=== PATIENT | male | born 1945 | race Caucasian/White ===

== ENCOUNTER 2020-09-23 13:39 | Outpatient (CLI) | payer MEDICARE, SELFPAY ==
--- NOTE | 2020-09-23 15:00 | NEURO_ITS ---
Impression: # Complains of numbness and pain in right hand; Only right upper extremity tested per patient request. # Right severe Carpal Tunnel Syndrome. # No ulnar neuropathy. # Abnormal needle/EMG exam of right APB.. Nerve Conduction Studies Anti Sensory Summary Table Stim Site NR Peak (ms) P-T Amp (?V) Site1 Site2 Delta-P (ms) Dist (cm) Trevin (m/s) Right Median Anti Sensory (2-3nd Digit) Wrist 4.6 7.9 Wrist 2-3nd Digit 4.6 14.0 30 Wrist 6.2 18.1 Wrist 2-3nd Digit 4.6 14.0 30 Right Radial Anti Sensory (Base 1st Digit) Wrist 2.1 14.6 Wrist Base 1st Digit 2.1 0.0 Right Ulnar Anti Sensory (5th Digit) Wrist 2.7 43.5 Wrist 5th Digit 2.7 14.0 52 Motor Summary Table Stim Site NR Onset (ms) O-P Amp (mV) Site1 Site2 Delta-0 (ms) Dist (cm) Trevin (m/s) Right Median Motor (Abd Poll Brev) Wrist 8.4 0.5 Elbow Wrist 1.2 30.0 250 Elbow 9.6 1.2 ELB/ADM Wrist 5.0 0.0 Right Ulnar Motor (Abd Dig Minimi) Wrist 2.9 7.4 A Elbow Wrist 5.5 32.0 58 A Elbow 8.4 5.9 F Wave Studies NR F-Lat (ms) L-R F-Lat (ms) Right Median (Mrkrs) (Abd Poll Brev) 32.57 Right Ulnar (Mrkrs) (Abd Dig Min) 30.70 EMG Side Muscle Nerve Root Ins Act Fibs Amp Dur Recrt Comment Right 1stDorInt Ulnar C8-T1 Nml Nml Nml Nml Nml Right Ext Indicis Radial (Post Int) C7-8 Nml Nml Nml Nml Nml Right Ext Digitorum Radial (Post Int) C7-8 Nml Nml Nml Nml Nml Right BrachioRad Radial C5-6 Nml Nml Nml Nml Nml Right PronatorTeres Median C6-7 Nml Nml Nml Nml Nml Right Abd Poll Brev Median C8-T1 Nml Nml Decr >12ms Reduced Right ABD Dig Min Ulnar C8-T1 Nml Nml Nml Nml Nml MTDD
== END 2020-09-23 13:40 | disposition home or self-care (01) ==
PROVIDERS: PCP Family Medicine; Visit Provider Family Medicine
DX: R20.2 Paresthesia of skin (principal); G56.01 Carpal tunnel syndrome, right upper limb
CPT/HCPCS: 95886; 95909

== ENCOUNTER → 2020-11-02 02:24 | Outpatient (CLI) | payer MEDICARE, SELFPAY ==
[2020-11-02 18:21] LABS: SARS-CoV-2 RNA PCR Negative
== END ==
PROVIDERS: PCP Family Medicine; Visit Provider Plastic Surgery
DX: Z01.812 Encounter for preprocedural laboratory examination (principal); Z20.822 Contact with and (suspected) exposure to COVID-19
CPT/HCPCS: C9803; U0003; U0005

== ENCOUNTER 2020-11-05 00:49 | Day surgery (SDC) | payer MEDICARE, SELFPAY ==
[2020-10-26 13:45] VITALS: BMI 27.8
--- NOTE | 2020-11-05 07:11 | WPDHPUPDATE1 ---
History and Physical Update Update Date/Time: 11/05/20 07:11 History and Physical has been reviewed, including an updated exam of the patient. There are NO changes in the patient's condition. Risks, benefits, and alternatives have been discussed and questions answered. Patient agrees to proceed with procedure.
[2020-11-05 10:23] VITALS: BP 148/89; PULSE 73; RESP 18; TEMP 36.8; O2SAT 98; BMI 27.8
[2020-11-05 11:35] VITALS: BP 136/79; PULSE 60; RESP 16; O2SAT 96
[2020-11-05 11:45] VITALS: BP 132/77; PULSE 59; RESP 16; O2SAT 96
[2020-11-05 11:58] VITALS: BP 131/77; PULSE 73; RESP 20; O2SAT 96
[2020-11-05] MEDS: LIDO 1%/EPINEPHRINE 1:100,000 50 ML VIAL INFILTRATE (11:59)
[2020-11-05 12:07] VITALS: BP 137/79; PULSE 67; RESP 20; O2SAT 98
--- NOTE | 2020-11-05 12:17 | PM.OP ---
Procedure Note - Brief Procedure Note - Brief Date of procedure: 11/05/20 Pre-op diagnosis: right carpal tunnel syndrome Post-op diagnosis: same Procedure performed: R OCTR Anesthesia: local Surgeon: Kwadwo Langston MD Estimated blood loss (mL): 2 Tourniquet time (min): 0 Drains: No Packing: No Pathology: none sent Complications: No immediate complications Condition: stable Disposition: same day
--- NOTE | 2020-11-05 13:16 | PM.PROC ---
Procedure Note - Detailed Date of procedure: 11/05/20 Pre-op diagnosis: right carpal tunnel syndrome Post-op diagnosis: same Procedure performed: Right open carpal tunnel release Description of procedure: The wrist was marked in the holding area. The patient was taken to the operating room and placed supine on the operating table. A time-out was held and confirmed the site was prepped and draped in usual fashion. The marking was reconfirmed and the site locally infiltrated with 1% lidocaine with epinephrine. The tourniquet was not utilized. The incision was made in the palm and dissection was carried through the subcutaneous tissue to the palmar aponeurosis. The this in the flexor retinaculum were incised with a 15. Blade. A [address] the ligament was divided distally and proximally to completely release it. No unusual anatomy was noted. The wound was closed with interrupted 4-0 nylon suture. A bandage with Aguilar wrap was applied and the patient is discharged from the operating in stable condition. As a prescription for hydrocodone 5/325 10. Was sent to his pharmacy. Surgeon: Kwadwo Langston MD
== END 2020-11-05 12:25 | disposition home or self-care (01) ==
PROVIDERS: PCP Family Medicine; Visit Provider Plastic Surgery
PROC: (CPT 64721; principal; 2020-11-05 11:00)
DX: G56.01 Carpal tunnel syndrome, right upper limb (principal)
CPT/HCPCS: 64721; C9803; U0003; U0005

== ENCOUNTER 2020-11-09 09:40 | Outpatient (CLI) | payer MEDICARE, SELFPAY | END 2020-11-09 09:41 | disposition home or self-care (01) | LOC: ANHCOVIDVC 09:40 | PROVIDERS: PCP Family Medicine | DX: Z23 Encounter for immunization (principal) | CPT/HCPCS: 0001A; 91300 ==

== ENCOUNTER 2020-11-30 09:31 | Outpatient (CLI) | payer MEDICARE, SELFPAY | END 2020-11-30 09:32 | disposition home or self-care (01) | LOC: ANHCOVIDVC 09:31 | PROVIDERS: PCP Family Medicine | DX: Z23 Encounter for immunization (principal) | CPT/HCPCS: 0002A; 91300 ==

== ENCOUNTER → 2021-08-03 10:26 | Outpatient (REF) | payer MEDICARE, SELFPAY | LOC: ANHLAB 10:26 | PROVIDERS: PCP Family Medicine; Visit Provider Nurse Practitioner | DX: C44.41 Basal cell carcinoma of skin of scalp and neck (principal) | CPT/HCPCS: 88305 ==

== ENCOUNTER → 2021-08-23 08:08 | Outpatient (REF) | payer MEDICARE, SELFPAY | LOC: ANHLAB 08:08 | PROVIDERS: PCP Family Medicine; Visit Provider Nurse Practitioner | DX: C44.41 Basal cell carcinoma of skin of scalp and neck (principal) | CPT/HCPCS: 88305; 88331 ==

== ENCOUNTER 2022-05-06 11:50 | Outpatient (CLI) | payer MEDICARE, SELFPAY ==
--- NOTE | ~2022-05-06 | XR_ITS ---
XR knee LT 3V DATE: 05/06/2022 12:11 INDICATION: Left knee pain. No injury. TECHNIQUE: [place] and weightbearing AP and lateral views COMPARISON: None FINDINGS: There is distention of the suprapatellar bursa consistent with knee joint effusion. There is mild patellofemoral joint space narrowing and spurring. Moderately severe loss of medial compartment joint space with periarticular spurring. Lateral compart ment joint space is well preserved. No fracture, dislocation, periosteal reaction or bone destruction. No radiopaque interarticular loose body or chondrocalcinosis. IMPRESSION: Prominent knee joint effusion Osteoarthritis involving particularly the medial compartment, also the patellofemoral compartment Reviewed, dictated and finalized at location B. IMPRESSION: Prominent knee joint effusion Osteoarthritis involving particularly the medial compartment, also the patellof emoral compartment
== END 2022-05-06 11:51 | disposition home or self-care (01) ==
PROVIDERS: PCP Emergency Medicine; Visit Provider Emergency Medicine
DX: M25.462 Effusion, left knee (principal); M17.12 Unilateral primary osteoarthritis, left knee
CPT/HCPCS: 73562

== ENCOUNTER 2022-07-06 09:00 | Outpatient (RCR) | payer MEDICARE, SELFPAY ==
--- NOTE | 2022-06-15 09:04 | PTOPEVAL1 ---
Assessment and note entered by Alva March, PT Evaluation Information Assessment Status Evaluation Diagnosis L knee effusion Onset January 2022 Subjective Information pain started about 1 year ago,fell onto knee, pain eased, then increased more over the past 5 months; not working at this time due to knee pain, seasonal work driving truck; limits his home activity to avoid knee hurting more; is frustrated with the knee pain and limiting his activity; is going to get an appointment with an ortho dr to check his knee--want to get it fixed, so does not have pain anymore; Reported Pain Level Pain Score Self Report Additional Pain Score Comments pain range of L knee 0-5/10; increase pain with standing/walking over 4 hours, riding bicycle; decrease pain with aleve and rest; dull, achey pain all over knee; kinesiotape over L knee to decrease edema--educated pt on monitor skin and tape; discussed use of knee support brace with hinges and velcro straps to support knee for walking distances and increased activity level-- PRN use; discussed elevation of LE when resting and ice PRN; also educated and discussed use of cane PRN to decrease WB on L LE for distance walking; Assessment PT Clinical Summary Venkat has the diagnosis of L knee effusion. His xray report stated OA and bony changes in his knee He is active and frustrated due to the limitations in his activity due to knee pain; able to be up/ walking about 4 hours, then have to sit and rest. With the evaluation, he has decreased L knee active ROM of (-10') to 95', with pain increased with flexion end range; he has good strength of hip and knee, except hip extension is weak. There is edema all around patella. During the evaluation time, extensive education to pt: educated pt on pain management--use cane, ice , knee brace, kinesiotape; gait train with cane; kinesiotape for edema; basic knee anatomy; plan for PT treatment and assist with decreasing pain; he also asked about ortho referral for TKR, knee surgery, options to decrease his pain. Skilled PT treatment is indicated for modalities to decrease pain and edema over knee; therapeutic exercises to increase hip extension strength and i
--- NOTE | 2022-07-25 12:55 | PCPTNOTE ---
PHYSICAL THERAPY DISCHARGE 07-25-22 Attending Provider: Ruddy Yin MD Patient:Venkat Bangura Date of :1945 Venkat called and canceled his reevaluation appointment on 07-13-22. He stated that he was doing well and will continue with the exercises at home. Therefore, he will be discharged from PT at this time. The goals were not addressed. He received 4 PT sessions for the diagnosis of L knee OA/effusion. Thank you for referring Mr. Bangura to [facility].
== END 2022-07-26 11:19 | disposition home or self-care (01) ==
LOC: ANHPT 09:00
PROVIDERS: PCP Emergency Medicine; Visit Provider Emergency Medicine
DX: M25.462 Effusion, left knee (principal)
CPT/HCPCS: 97016; 97110; 97161; 97530

== ENCOUNTER 2022-12-15 15:39 | Emergency (ER) | payer MEDICARE, SELFPAY ==
[2022-12-15] VITALS (15 sets, daily range): BP systolic 126–144; BP diastolic 81–96; PULSE 66–82; RESP 18–20; TEMP 36.9–37.1; O2SAT 95–97
--- NOTE | ~2022-12-15 | CT_ITS ---
EXAMINATION: CT brain wo con INDICATION: Left arm and leg numbness COMPARISON: None TECHNIQUE: Standard unenhanced head CT. The dose-length product (DLP) was 605.33 mGy-cm. The mA was a djusted according to patient size. Iterative reconstruction technique was employed. FINDINGS: There is no acute intraparenchymal hemorrhage. No evidence of mass lesion. No evidence of a cute infarction. There is mild periventricular and subcortical hypodensity probably related to small vessel ischemic disease. There is mild prominence of the sulci and ventricles related to cerebral atr ophy. Intracranial calcified cerebral atherosclerosis is noted. There are no extra-axial collections. There is no mass effect or midline shift. Changes in the left globe are likely from ocular lens surg kolby. There is mild mucosal thickening of the paranasal sinuses. IMPRESSION: 1. No acute intracranial abnormality. 2. Age related findings. Reviewed, dictated and finalized at location F.
--- NOTE | 2022-12-15 16:42 | ED.WEAKNESS ---
HPI - Weakness General Chief complaint: Weakness Stated complaint: left knee weakness; left arm weakness Time Seen by Provider: 12/15/22 15:49 Source: patient and family Mode of arrival: ambulatory Limitations: no limitations History of Present Illness HPI Narrative: This is a 77-year-old male presents to the emergency department with weakness left arm and leg with some no drift no neurological deficits has been going on for the last day or 2 and feels like there is some heaviness in his arm and leg although there is no pronator drift no leg weakness. There is no slurred speech no fever chills no dysuria or hematuria no chest pain no shortness of breath no blurred vision no headaches no nausea vomiting. MD Complaint: numbness and tingling Onset (ago): day(s) Duration: constant Location: left hand and LLE Migration: none Severity: mild Related Data Allergies Allergy/AdvReac Type Severity Reaction Status Date / Time No Known Allergies Allergy Mild Verified 10/17/22 13:15 Review of Systems Review of Systems: All systems reviewed & are unremarkable except as noted in HPI and below PMFSH Past Medical History Medical History Erectile dysfunction Essential hypertension Hyperlipidemia Hypertension IGT (impaired glucose tolerance) Numbness of right hand Poison jeni dermatitis Wellness examination Surgical History Surgical History S/P carpal tunnel release Family History Family History Mother Cerebrovascular accident Father Family history of coronary artery disease Social History Social History Social History: Years smoked: 3 Smoking status: Former smoker Tobacco type: cigars Second hand tobacco smoke exposure: No Smoking end date: 09/04/85 Alcohol intake: current Alcohol use details: 2 SHOTS OF WHISKEY DAILY Substance use: never Substance use type: does not use Lack of Transportation: No Lack of Food: Never True Current Housing: I Have Housing Concerned About Future Housing: No Difficulty Paying Gas/Electric Bills: No Difficulty Paying for Meds: No Currently Unemployed: No Education: High School Diploma/GED Difficulty w/ Childcare or Family Care: No Living arrangements: with family Occupation/Education: retired Gender identity (if verbalized by the patient): Male Sexual Orientation (if Verbalized by the Patient): Straight or Heterosexual Spiritual care concerns: No Exam Const: General: healthy appearing Nutritional Appearance: well nourished Orientation/consciousness: patient oriented x3 Limitations: no limitations HENMT: Head: normal to inspection Face/Nose/Sinus: Normal external nose present Face and sinus: normal facial exam Eyes: Conjunctivae: conjunctivae normal Pupils: Equal, round and reactive pupils present Neck: Neck: normal visual inspection Chest: Chest palpation & inspection: normal inspection of the chest Resp: Effort & Inspection: normal respiratory effort Auscultation: clear to auscultation bilaterally Cardio: Rate: regular rate Rhythm: regular rhythm GI: GI Palp: Yes Soft to palpation Auscultation: normal bowel sounds : General: Yes bladder normal to palpation Back/Spine/Pelvis: Back: no CVA tenderness Skin: General skin exam: normal color Rashes: no rashes Wounds: no wounds Neuro: General: patient oriented x3, moves all extremities, no focal motor deficits and CN's II-XI intact bilaterally Cranial nerves: Yes Nystagmus not present Speech: normal speech Gait exam (Neuro): Normal gait present Extrem: General: normal to inspection and no clubbing, cyanosis or edema Psych: Mental Status: mental status grossly normal Affect: normal affect Course Course Emergency Course: CT scan brain pe
== END 2022-12-15 17:20 | disposition home or self-care (01) ==
PROVIDERS: Emergency Provider Emergency Medicine; PCP Emergency Medicine
DX: R53.1 Weakness (principal); E78.5 Hyperlipidemia, unspecified; I10 Essential (primary) hypertension; Z87.891 Personal history of nicotine dependence
CPT/HCPCS: 70450; 99284

== ENCOUNTER → 2022-12-16 06:54 | Outpatient (CLI) | payer MEDICARE, SELFPAY ==
--- NOTE | ~2022-12-16 | MR_ITS ---
MRI of the brain Clinical History: Left-sided weakness Technique: Axial and sagittal T1-weighted images were acquired. These were followed by axial T2-weigh nanda, diffusion weighted, gradient, and FLAIR images. Findings: There is a 1.3 x 0.7 cm area versus diffusion in the right periventricular white matter, co nsistent with acute infarct. Possible additional subacute infarct in the right periventricular white matter measuring 9 mm in diameter (diffusion image 22). No acute intracranial hemorrhage evident. The re are several small foci of hemosiderin in the thalami and basal ganglia bilaterally. There are mode rate chronic microvascular ischemic changes in the white matter bilaterally. Ventricles and subarachnoid spaces are unremarkable. Orbits are unremarkable. Paranasal sinuses and m astoid air cells are clear. Major intracranial flow voids are intact. Sagittal midline structures are intact. IMPRESSION: 1.3 x 0.7 cm acute infarct in the right periventricular white matter. Suspected additional 9 mm subac graciela infarct in the right periventricular white matter. Moderate chronic white matter changes with evidence of probable prior scattered microhemorrhages. Con maintenance advisor amyloid angiopathy. Reviewed, dictated and finalized at location . IMPRESSION: 1.3 x 0.7 cm acute infarct in the right periventricular white matter. Suspected additional 9 mm subacute infarct in the right periventricular white matter. Moderate chronic white matter changes with evidence of probable prior scattered microhemorrhages. Consider amyloid angiopathy.
== END ==
PROVIDERS: PCP Emergency Medicine; Visit Provider Emergency Medicine
DX: I63.9 Cerebral infarction, unspecified (principal); R90.82 White matter disease, unspecified; R53.1 Weakness
CPT/HCPCS: 70551

== ENCOUNTER 2022-12-16 09:03 | Inpatient (IN) | payer MEDICARE, SELFPAY ==
[2022-12-16] VITALS (11 sets, daily range): BP systolic 126–148; BP diastolic 63–94; PULSE 55–71; RESP 12–18; TEMP 36.2–36.9; O2SAT 95–100; BMI 28.4
--- NOTE | ~2022-12-16 | US_ITS ---
EXAMINATION: US carotid duplex BI DATE: 12/16/2022 14:10 INDICATION: Stroke. TECHNIQUE: Grayscale, color Doppler, and pulsed Doppler images of the cervical carotid arteries were obtained. The degree of vessel stenosis is placed in one of the following categories: normal, <50%, 5 0-69%, >=70% but less than near-occlusion, near-occlusion, or total occlusion. Note that percent sten osis relative to normal distal artery lumen diameter is indirectly measured from velocity measurement s as described by Douglas, et al. Radiology 2003; 229:340-346. Notes: Normal: Peak systolic velocity <125 centimeters/sec and no plaque <50%. Peak systolic velocity <125 ( EDV <40; ICA/CCA PSV ratio <2.0; used these factors only a tandem lesions or low cardiac output or co ntralateral disease) 50-69 %: PSV 125-230 (EDV 40-100; ratio 2-4) >= 70% but less than near occlusion: PSV greater than 230 (EDV > 100; ratio> 4.0) Near Occlusion: PSV that is variable; markedly narrowed lumen Occlusion: Absent flow on color/spectral Doppler and no lumen on escobar scale. COMPARISON: None. FINDINGS: RIGHT: The right common carotid artery (CCA) peak systolic velocity (PSV) is 58 cm/s. The right internal car otid artery (ICA) PSV is 44 cm/s. The right ICA end-diastolic velocity (EDV) is 14 cm/s. The right IC A/CCA PSV ratio is 0.8. The external carotid artery (ECA) PSV is 37 cm/s. There is antegrade flow in the right vertebral artery. LEFT: The left CCA PSV is 53 cm/s. The left ICA PSV is 48 cm/s. The left ICA EDV is 18 cm/s. The left ICA/C CA PSV ratio is 0.9. The ECA PSV is 23 cm/s. There is antegrade flow in the left vertebral artery. IMPRESSION: 1. Less than 50% stenosis in the right internal carotid artery by sonographic criteria. 2. Less than 50% stenosis in the left internal carotid artery by sonographic criteria. Reviewed, dictated and finalized at location B. IMPRESSION: 1. Less than 50% stenosis in the right internal carotid artery by sonographic minna snell. 2. Less than 50% stenosis in the left internal carotid artery by sonographic pamela yeung.
--- NOTE | ~2022-12-16 | CT_ITS ---
EXAMINATION: CTA BRAIN/CAROTID DATE: 12/17/2022 15:43 INDICATION: Acute stroke with left arm numbness TECHNIQUE: Computed tomographic angiography (CTA) of the head and neck was performed with 100 mL Omni paque-350 intravenous contrast. Multiplanar reconstructions and maximum intensity projection 3D-recon structions of the carotid arteries and of the intracranial arteries were created by the technologist on a separate workstation. Precontrast CT of the head was also obtained. Automated exposure control and iterative reconstruction technique were employed.The dose-length product was 1809.59 mGy-cm. COMPARISON: Head CT dated 12/15/2022 and brain MR dated 12/16/2022 FINDINGS: Carotid arteries: Visualized portion of the aortic arch demonstrates normal caliber with no dissection. There is athero sclerotic plaque with 0% stenosis of the right carotid bulb relative to normal distal artery lumen di ameter (NASCET criteria). There is atherosclerotic plaque with 0% stenosis of the left carotid bulb r elative to normal distal artery lumen diameter. Mild dependent atelectasis in the visualized upper yfn ngs. Calcified subcarinal lymph nodes consistent with old granulomatous disease. Likely benign subcen timeter right thyroid nodule. Cervical soft tissues are unremarkable. Severe cervical spondylosis. Head: Small old lacunar infarct at the head of the left caudate nucleus. There is a small region of decreas ed attenuation corresponding to the small acute infarct in the right frontal lobe spain radiata whic h is more conspicuous on the restricted diffusion imaging on MRI from one day prior. There is additio nal mild to moderate scattered white matter hypoattenuation consistent with chronic small vessel isch emic disease. No acute intracranial hemorrhage or abnormal extra axial fluid collection. Ventricles a re normal and symmetric. No mass/mass effect. No abnormally enhancing brain lesions on the postcontra st imaging. Changes of left intraocular lens replacement. The orbits, paranasal sinuses and mastoid a ir cells are normal. Intracranial arteries Small amount of atherosclerotic calcific location without hemodynamically significant stenosis at the bilateral carotid siphons, basilar and bilateral intracranial vertebral arteries. No evident hemodyn amically significant stenosis or aneurysm. Vertebral arteries are codominant. Both A1 and P1 segments are patent. There is also a patent anterior to indicating artery. Cerebral arterial arborization sergei ears symmetric. IMPRESSION: 1. 0% stenosis of the right carotid bulb relative to normal distal artery lumen diameter (NASCET crit eria). 2. 0% stenosis of the left carotid bulb relative to normal distal artery lumen diameter. 3. Decreased attenuation consistent with cytotoxic edema associated with the small acute infarct in t he right frontal lobe spain radiata which was previously noted on brain MRI from one day prior. 4. Nonhemodynamically significant atherosclerotic plaque at the bilateral carotid siphons, the basila r and bilateral intracranial vertebral arteries. 5. More diffuse mild to moderate scattered periventricular predominant white matter hypoattenuation c onsistent with chronic small vessel ischemic disease. Reviewed, dictated and finalized at location A. IMPRESSION: 1. 0% stenosis of the right carotid bulb relative to normal distal artery lumen diameter (NASCET criteria). 2. 0% stenosis of the left carotid bulb relative to normal distal artery lumen diameter. 3. Decreased attenuation consistent with cytotoxic edema associated with the sm all acute infarct in the right frontal lobe spain radiata which was previously noted on brain MRI from one day prior. 4. Nonhemodynamically significant atherosclerotic plaque at the b
--- NOTE | ~2022-12-16 | XR_ITS ---
EXAMINATION: XR chest 1V 12/16/2022 14:05 INDICATION: CVA PROCEDURE: PA view of the chest COMPARISON: No prior studies for comparison. FINDINGS: The lungs are clear. The cardiomediastinal silhouette is within normal limits. There are no pleural effusions. There is no pneumothorax suspected. IMPRESSION: 1: NO ACUTE CARDIOPULMONARY DISEASE. Reviewed, dictated and finalized at location B.
[2022-12-16 09:41] LABS: Basophils Percent Auto 0.8 % (0.2-1.2); Eosinophils Absolute Auto 0.4 K/mm3 (0-0.3); Hemoglobin 15.4 g/dL (14.0-18.0); Immature Granulocyte Absolute 0.02 K/mm3 (0.00-0.031); Immature Granulocyte Percent A 0.4 % (0-0.5); Lymphocytes Absolute Auto 1.44 K/mm3 (0.9-3.2); Lymphocytes Percent Auto 27.9 % (18.3-44.2); Mean Corpuscular HGB Conc 32.8 g/dl (32-36); Mean Corpuscular Hemoglobin 31.1 pg (26-34); Mean Corpuscular Volume 94.9 fl (80-100); Mean Platelet Volume 8.4 fl (7.4-10.4); Monocytes Absolute Auto 0.8 K/mm3 (0.1-0.6); Monocytes Percent Auto 15.5 % (2.6-8.5); Neutrophils Absolute Auto 2.5 K/mm3 (1.3-6.7); Neutrophils Percent Auto 48.4 % (45.5-73.1); Platelet Count Result 241 k/mm3 (150-375); Red Blood Count 4.95 M/mm3 (4.6-6.20); Red Cell Distribution Width 12.9 % (11.5-14.5); White Blood Count 5.2 K/mm3 (4.5-10.0)
[2022-12-16 09:52] LABS: Alanine Aminotransferase 22 U/L (6-50); Albumin Level 4.4 g/dL (3.5-5.1); Alkaline Phosphatase 61 U/L (38-126); Anion Gap 8 mmol/L (8-16); Aspartate Amino Transferase 29 U/L (17-59); Bilirubin,Total 0.6 mg/dL (0.2-1.3); Blood Urea Nitrogen 13 mg/dL (9-20); Calcium 8.7 mg/dL (8.4-10.2); Carbon Dioxide 24 mmol/L (22-30); Chloride 105 mmol/L (98-107); Estimated CRCL calculation 62 ml/min; Estimated Glomerular Filt Rate > 60; Glucose 120 mg/dL (65-110); Potassium 4.3 mmol/L (3.4-5.0); Sodium 137 mmol/L (137-145)
[2022-12-16 09:53] LABS: Prothrombin Time 13.2 Seconds (11.1-14.7)
[2022-12-16 09:54] LABS: Partial Thromboplastin Time 26.7 SECONDS (22.3-36.8)
[2022-12-16 10:04] LABS: Troponin I < 0.012 ng/mL (0.000-0.034)
--- NOTE | 2022-12-16 11:03 | ED.NEUROSD ---
HPI - Neuro Symptoms/Deficit General Chief Complaint: Suspected CVA Stated Complaint: brain infarct seen on mri Time Seen by Provider: 12/16/22 10:59 History of Present Illness HPI Narrative: 77 years old white male came to the emergency room by private car because of not able to get around with the left upper and left lower extremity weakness started 2 days ago patient feeling like drunk. Patient was seen his family physician and had CT scan of the head on December 15 which showed no acute intracranial abnormality, today had MRI of the brain which showed acute infarction. Please look at the record. Patient denies increase of his symptoms. History of hypertension, and tobacco use, and social drinking, patient is not on antiplatelet or anticoagulant medication. Related Data Allergies Allergy/AdvReac Type Severity Reaction Status Date / Time No Known Allergies Allergy Mild Verified 12/16/22 09:21 Review of Systems Review of Systems: All systems reviewed & are unremarkable except as noted in HPI and below PMFSH Past Medical History Medical History Erectile dysfunction Essential hypertension Hyperlipidemia Surgical History Surgical History History of carpal tunnel release History of cataract extraction with lens replacement Family History Family History Mother Cerebrovascular accident Father Family history of coronary artery disease Social History Social History Social History: Surrogate medical decision maker: Code status: Full code. Years smoked: 3 Smoking status: Former smoker Tobacco type: cigars Second hand tobacco smoke exposure: No Smoking end date: 09/04/85 Alcohol intake: current Alcohol use details: Two shots of whiskey a day. Substance use: never Substance use type: does not use Lack of Transportation: No Lack of Food: Never True Current Housing: I Have Housing Concerned About Future Housing: No Difficulty Paying Gas/Electric Bills: No Difficulty Paying for Meds: No Currently Unemployed: No Education: High School Diploma/GED Difficulty w/ Childcare or Family Care: No Living arrangements: with family Occupation/Education: retired Spiritual care concerns: No Exam Narrative: General appearance: Well-developed, well-nourished Skin: Normal color Head: Normocephalic, nontraumatic Eyes: Clear conjunctiva ENT: Oropharynx normal, ears normal, nose normal Neck: Supple, nontender Chest and respiratory: Airway patent, no respiratory distress, no accessory muscle use Heart: Regular rate/rhythm Abdomen: Soft, nontender, no organomegaly, quiet bowel sounds Vascular: Normal peripheral pulses, normal capillary refill. Musculoskeletal: Mild weakness of the left upper and left lower extremity Neurologic: Alert and oriented ?3, Course Reevaluation(s) Reevaluation #1: Unchanged compared to on arrival Date: 12/16/22 Time: 13:27 Consultations Consultation #1: Dr. Mckeon Date: 12/16/22 Time: 11:15 Vital Signs Vital signs: Vital Signs Temperature 36.9 C 12/16/22 09:13 Pulse Rate 62 12/16/22 09:13 Respiratory Rate 14 12/16/22 09:13 Blood Pressure 148/94 H 12/16/22 09:13 Pulse Oximetry 100 12/16/22 09:13 Oxygen Delivery Room Air 12/16/22 09:13 Temperature 36.9 C 12/16/22 09:13 Pulse Rate 71 12/16/22 13:13 Respiratory Rate 16 12/16/22 13:13 Blood Pressure 137/84 12/16/22 13:13 Pulse Oximetry 98 12/16/22 13:13 Oxygen Delivery Room Air 12/03
[2022-12-16] MEDS: ASPIRIN 81 MG CHEWABLE TABLET 324 MG PO (11:23)
--- NOTE | 2022-12-16 11:52 | ECG_ITS ---
Measurements Intervals [place] Rate: 61 P: 42 NM: 200 QRS: -23 QRSD: 109 T: 5 QT: 426 QTc: 430 Interpretive Statements SINUS RHYTHM MODERATE VOLTAGE CRITERIA FOR LVH, CONSIDER NORMAL VARIANT BORDERLINE ECG NO PREVIOUS ECG AVAILABLE FOR COMPARISON Electronically Signed On 12-16-2022 16:47:02 CDT by Tang Green M.D.
--- NOTE | 2022-12-16 12:20 | PC.NURSE ---
called dietary and ordered lunch tray at this time
--- NOTE | 2022-12-16 13:05 | PM.IMHP ---
H&P: HPI History of Present Illness Date/Time: 12/16/22 13:05 Chief Complaint: Abnormal brain MRI. Narrative: This is a very pleasant 77-year-old male with hypertension who presented to the emergency department for evaluation after he was found to have evidence of an acute stroke on brain MRI this morning. Patient provides the following history. He was seen in the emergency department at the [facility] yesterday for evaluation of weakness and heaviness in the left arm and leg which he 1st noticed sometime on Monday afternoon. He has felt a bit off balance and feels as though he is not walking properly because the left leg does not seem to be doing what he intends. Brain CT obtained yesterday showed no acute intracranial abnormality and age-related findings. He was given a dose of Plavix and was scheduled for an outpatient brain MRI this morning at 07:00. MRI showed a 1.3 x 0.7 cm acute infarct in the right periventricular matter and a suspected additional 9 mm subacute infarct in the same region. 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 He is being admitted in this setting for further evaluation and neurology consultation. At the time my evaluation he has no new complaints and he has not had any worsening of his symptoms. He denies vertigo, acute visual changes, facial droop, and difficulty speaking and swallowing. He has no history of cardiac dysrhythmia and denies sensations of racing heart and palpitations. He has no known personal or family history of amyloidosis. Weight has remained stable. He denies significant fatigue, weakness, easy bruising, shortness of breath, joint pain, and swelling. 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 It is pruritic but that seems to improve after taking a hot shower. This rash is not all similar to the psoriasis that he has on the other leg. 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 Review of Systems Review of Systems: Twelve systems were reviewed and are negative except for as per HPI. [facility] Past Medical History Medical History Erectile dysfunction Essential hypertension Hyperlipidemia Surgical History Surgical History History of carpal tunnel release History of cataract extraction with lens replacement Family History Family History Mother Cerebrovascular accident Father Family history of coronary artery disease Social History Social History (Updated 12/16/22 @ 23:32 by Pascale Joy PA-C) Social History: Surrogate medical decision maker: Essence Gaspar, daughter. Code status: Full code. Years smoked: 3 Smoking status: Former smoker Tobacco type: cigars Second hand tobacco smoke exposure: No Smoking end date: 09/04/85 Alcohol intake: current Drinks per week: 21 Alcohol use details: Two shots of whiskey a day. Substance use: never Substance use type: does not use Last use: 12/12/22 Lack of Transportation: No Lack of Food: Never True Current Housing: I Have Housing Concerned About Future Housing: No Difficulty Paying Gas/Electric Bills: No Difficulty Paying for Meds: No Currently Unemployed: No Education: High School Diploma/GED Difficulty w/ Childcare or Family Care: No Living arrangements: with family Additional living arrangements comments: Lives with spouse. Occupation/Education: retired Additional occupation/education comments: Retired body and fender mechanic apprentice. Spiritual care concerns: No Meds Home Medications and Allergies Home Medications Medication Instructions Recorded Confirmed Type amlodipine 10 mg tablet 10 mg PO DAILY #90 tab
--- NOTE | 2022-12-16 13:21 | ECHO_ITS ---
Patient Info Name: Venkat Bangura Age: 77 years : 1945 Gender: Male Ht: 70 in Wt: 189 lbs BSA: 2.07 m2 HR: 71 bpm BP: 137 / 84 mmHg Heart Rhythm: Sinus Rhythm Technical Quality: Fair Exam Date: 12/16/2022 2:17 PM Exam Location: [facility] Card Pulmonary Patient Status: Inpatient Admit Date: 12/16/2022 Staff Ordering Physician: Pascale Joy PA-C [place] Parent: Yasmin Morin RDCS Attending Provider: Malcolm Meek MD Referring Physician: Rufino SAN; Exam Type: CA echo doppler w bubble study Study Info Indications - stroke, htn, hld Complete two-dimensional, color flow and Doppler transthoracic echocardiogram is performed with agitated saline. Contrast/Agitated Saline Contrast/Ag. Saline: Agitated Saline Amount: 20.00 ml Administered By: Charlette Moreno Existing IV Access: Yes IV Access Condition: patent with no signs of infiltration Summary 1. Left ventricular chamber dimension is normal. 2. Left ventricular systolic function is normal, estimated at 65-70%. 3. The left ventricular diastolic function is grade I diastolic dysfunction. 4. E/e' 10 is mildly elevated. 5. There is trace mitral valve regurgitation. 6. No pulmonary hypertension, estimated pulmonary arterial systolic pressure is 22 mmHg. 7. There is trace pulmonic regurgitation. Left Ventricle E/e' 10 is mildly elevated. Left ventricular chamber dimension is normal. Left ventricular systolic function is normal, estimated at 65-70%. The left ventricular diastolic function is grade I diastolic dysfunction. Right Ventricle Right ventricular chamber dimension is normal. Right ventricular systolic function is normal and with normal TAPSE 2.7 cm. Left Atria Left atrial chamber dimension is normal. Right Atria Right atrial chamber dimension is normal. Atrial Septum Intact interatrial septum visualized by 2D and agitated saline imaging. Agitated saline injection with and without valsalva maneuver opacified right side cardiac chambers without shunt to left side cardiac chambers. Aortic Valve The aortic valve is trileaflet. There is no aortic valve stenosis. There is no aortic valve regurgitation. Pulmonic Valve There is trace pulmonic regurgitation. Mitral Valve There is no mitral valve stenosis. There is trace mitral valve regurgitation. Tricuspid Valve There is no tricuspid valve regurgitation. No pulmonary hypertension, estimated pulmonary arterial systolic pressure is 22 mmHg. Pericardium/Pleural There is no pericardial effusion. Inferior Vena Cava Normal inferior vena cava with >50% collapse upon inspiration consistent with normal right atrial pressure, 5 mmHg. Aorta The aortic root size at the sinus of Valsalva is normal. Left Ventricular Outflow Tract Name Value Normal LVOT 2D LVOT Diameter 2.0 cm LVOT Doppler LVOT Peak Gradient 3 mmHg LVOT Mean Gradient 2 mmHg LVOT VTI 19 cm LVOT VTI/AV VTI Ratio 0.7
--- NOTE | 2022-12-16 13:35 | ADMGEN ---
This patient, Venkat Bangura, was admitted to Medical Room 258-01. Patient/family oriented to hospital policies and general routines including ID bracelet, bed and alarms, visiting hours, pain management, procedures, bathroom and other care routines, personal items, smoking policy, room service/diet, and visiting hours. Information on how to activate the Rapid Response Team has been discussed. Patient/Family are encouraged to report perceived risks to care and to ask questions if they do not understand what they are told or what they should do.
[2022-12-16] MEDS: CLOPIDOGREL BISULFATE 75 MG TABLET PO (23:39)
[2022-12-17] VITALS (7 sets, daily range): BP systolic 128–147; BP diastolic 67–88; PULSE 66–80; RESP 18; TEMP 36.5–36.8; O2SAT 97–98
[2022-12-17 07:02] LABS: Anion Gap 6 mmol/L (8-16); Blood Urea Nitrogen 13 mg/dL (9-20); Calcium 8.6 mg/dL (8.4-10.2); Carbon Dioxide 25 mmol/L (22-30); Chloride 107 mmol/L (98-107); Cholesterol 192 mg/dL (0-200); Estimated CRCL calculation 52 ml/min; Estimated Glomerular Filt Rate > 60; Glucose 96 mg/dL (65-110); HDL Direct 46 mg/dL; Magnesium 2.4 mg/dL (1.6-2.3); Potassium 4.2 mmol/L (3.4-5.0); Sodium 138 mmol/L (137-145); Triglycerides 133 mg/dL (<150)
--- NOTE | 2022-12-17 07:06 | P.PNIM_ITS ---
Progress Note: A&P Assessment and Plan (1) Cerebrovascular accident: Code(s): I63.9 - Cerebral infarction, unspecified Status: Acute Assessment and Plan: * Presented to the ED of [place] with complaints of weakness and heaviness in the right arm * Head CT no acute intracranial abnormality * Brain MRI shows an acute infarct and a possible smaller subacute infarct in the right periventricular matter. * Echocardiogram showed EF of 65-70% with grade 1 diastolic dysfunction without right to left shunt * carotid Doppler ultrasounds less than 50% stenosis bilaterally * Radiologist remarks on chronic white matter changes with evidence of probable prior scattered microhemorrhages which may be seen with amyloid angiopathy. * Lipid panel cholesterol 192, Triglycerides 133, HDL 46, LDL * Neurology consult * Neuro checks Q4H * PT/OT also consulted. (2) White matter changes: Status: Acute Assessment and Plan: * MRI demonstrates moderate chronic white matter changes with evidence of probable prior scattered microhemorrhages, consider amyloid angiopathy. * Urine and serum protein electrophoresis and immunofixation and light chain assay pending. * Cutaneous findings on the lower limbs and a skin biopsy would be appropriate. * May have to be done by dermatology as an outpatient. (3) Essential hypertension: Code(s): I10 - Essential (primary) hypertension Status: Acute Assessment and Plan: * Blood pressure currently 130/84 * Continue home amlodipine, lisinopril * Trend BP * Adjust therapy as indicated (4) Hyperlipidemia: Qualifiers: Hyperlipidemia type: mixed hyperlipidemia Qualified Code(s): E78.2 - Mixed hyperlipidemia Code(s): E78.5 - Hyperlipidemia, unspecified Status: Acute Assessment and Plan: * Lipid panel cholesterol 192, Triglycerides 133, HDL 46, LDL * Consider adding a statin (5) Impaired fasting glucose: Code(s): R73.01 - Impaired fasting glucose Status: Acute Assessment and Plan: * Glucose 96 * hemoglobin A1c 5.7 * Continue to trend glucose * No indication of accu checks, or continuous monitoring Time Spent With Patient Time: 52 minutes Time with patient: Greater than 35 minutes Subjective Date/time seen: 12/17/22 07:06 Interval history: 12/17/22 12/16/22? 13:05 This is a very pleasant 77-year-old male with hypertension who presented to the emergency department for evaluation after he was found to have evidence of an acute stroke on brain MRI this morning. Patient provides the following history. He was seen in the emergency department at the [facility] [place] yesterday for evaluation of weakness and heaviness in the left arm and leg which he 1st noticed sometime on Monday afternoon. He has felt a bit off balance an d feels as though he is not walking properly because the left leg does not seem to be doing what he intends. Brain CT obtained yesterday showed no acute intracranial abnormality and age-related findings. He was given a dose of Plavix and was scheduled for an outpatient brain MRI this morning at 07:00. MRI showed a 1.3 x 0.7 cm acute infarct in the right periventricular matter and a suspected additional 9 mm subacute infarct in the same region. 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 He is be
--- NOTE | 2022-12-17 07:06 | PM.IMPN ---
Progress Note: A&P Assessment and Plan (1) Cerebrovascular accident: Code(s): I63.9 - Cerebral infarction, unspecified Status: Acute Assessment and Plan: Presented to the ED of [place] with complaints of weakness and heaviness in the right arm Head CT no acute intracranial abnormality Brain MRI shows an acute infarct and a possible smaller subacute infarct in the right periventricular matter. Echocardiogram showed EF of 65-70% with grade 1 diastolic dysfunction without right to left shunt carotid Doppler ultrasounds less than 50% stenosis bilaterally Radiologist remarks on chronic white matter changes with evidence of probable prior scattered microhemorrhages which may be seen with amyloid angiopathy. Lipid panel cholesterol 192, Triglycerides 133, HDL 46, LDL Neurology consult Neuro checks Q4H PT/OT also consulted. (2) White matter changes: Status: Acute Assessment and Plan: MRI demonstrates moderate chronic white matter changes with evidence of probable prior scattered microhemorrhages, consider amyloid angiopathy. Urine and serum protein electrophoresis and immunofixation and light chain assay pending. Cutaneous findings on the lower limbs and a skin biopsy would be appropriate. May have to be done by dermatology as an outpatient. (3) Essential hypertension: Code(s): I10 - Essential (primary) hypertension Status: Acute Assessment and Plan: Blood pressure currently 130/84 Continue home amlodipine, lisinopril Trend BP Adjust therapy as indicated (4) Hyperlipidemia: Qualifiers: Hyperlipidemia type: mixed hyperlipidemia Qualified Code(s): E78.2 - Mixed hyperlipidemia Code(s): E78.5 - Hyperlipidemia, unspecified Status: Acute Assessment and Plan: Lipid panel cholesterol 192, Triglycerides 133, HDL 46, LDL Consider adding a statin (5) Impaired fasting glucose: Code(s): R73.01 - Impaired fasting glucose Status: Acute Assessment and Plan: Glucose 96 hemoglobin A1c 5.7 Continue to trend glucose No indication of accu checks, or continuous monitoring Time Spent With Patient Time: 52 minutes Time with patient: Greater than 35 minutes Subjective Date/time seen: 12/17/22 07:06 Interval history: 12/17/22 12/16/22? 13:05 This is a very pleasant 77-year-old male with hypertension who presented to the emergency department for evaluation after he was found to have evidence of an acute stroke on brain MRI this morning. Patient provides the following history. He was seen in the emergency department at the [facility] [place] yesterday for evaluation of weakness and heaviness in the left arm and leg which he 1st noticed sometime on Monday afternoon. He has felt a bit off balance and feels as though he is not walking properly because the left leg does not seem to be doing what he intends. Brain CT obtained yesterday showed no acute intracranial abnormality and age-related findings. He was given a dose of Plavix and was scheduled for an outpatient brain MRI this morning at 07:00. MRI showed a 1.3 x 0.7 cm acute infarct in the right periventricular matter and a suspected additional 9 mm subacute infarct in the same region. 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 He is being admitted in this setting for further evaluation and neurology consultation. At the time my evaluation he has no new complaints and he has not had any worsening of his symptoms. He denies vertigo, acute visual changes, facial droop, and difficulty speaking and swallowing. He has no history of cardiac dysrhythmia and denies sensations of racing heart and palpitations. He has no known personal or family history of amyloidosis. Weight has remained stable.? He denies significant fa
[2022-12-17 07:12] LABS: LDL Cholesterol Direct 106 mg/dL
[2022-12-17 07:22] LABS: Hemoglobin A1C 5.7 % (<5.7)
[2022-12-17] MEDS: lisinopriL 2.5 MG TABLET PO (08:39)
[2022-12-17] MEDS: amLODIPine BESYLATE 5 MG TABLET 10 MG PO (08:40)
--- NOTE | 2022-12-17 09:42 | WPDNEURCNPN ---
Assessment and Plan Assessment and plan (1) Cerebrovascular accident: Code(s): I63.9 - Cerebral infarction, unspecified Status: Acute (2) White matter periventricular infarction: Code(s): I63.9 - Cerebral infarction, unspecified Status: Acute (3) Hyperlipidemia: Qualifiers: Hyperlipidemia type: mixed hyperlipidemia Qualified Code(s): E78.2 - Mixed hyperlipidemia Code(s): E78.5 - Hyperlipidemia, unspecified Status: Acute (4) Essential hypertension: Code(s): I10 - Essential (primary) hypertension Status: Acute Plan Venkat Bangura is a 77 year old male with a history of hypertension and hyperlipidemia presenting for evaluation of stroke. Found to have right periventricular infarction. Suspect etiology to be small vessel stroke. - CTA brain carotid - LDL is 106, will need statin - Continue Aspirin and Plavix x 3 weeks, then aspirin 81mg daily Consult date: 12/17/22 Reason for consult: Acute stroke HPI: Venkat Bangura is a 77 year old male with a history of hypertension and hyperlipidemia presenting for evaluation of stroke. On the day prior to admission, patient presented to [place] ED due to concerns for weakness in the left arm and leg (which he first noted on 12/14). CT head was obtained which did not show any abnormalities. He was given a dose of Plavix and scheduled for MRI the following morning. Yesterday, patient had an MRI brain which showed 1/3 x 0.7cm acute infarct in the right periventricular region and a 9mm subacute infarct in the right periventricular region as well. There was also evidence of scattered microhemorrhages, raising concern for possible amyloid angiopathy. Patient was transferred to [place] ED for further evaluation. Patient denies any focal numbness, vision changes, speech changes, facial droop, dysphagia. His blood pressure has been in the 130-140s systolic. Carotid doppler showed <50% stenosis bilaterally. LDL is 106 and A1c is 5.7. Echocardiogram was unrevealing. Patient reports feeling like his left side is less coordinated than the right but otherwise no complaints. Discussed results of MRI with and patient. Review of Systems Constitutional: Constitutional: Reports no additional constitutional complaints Eyes: Eyes: Reports no additional eye complaints ENT: Reports system reviewed and no additional complaints, except as documented Cardiovascular: Cardiovascular: Reports no additional cardiovascular complaints Respiratory: Respiratory: Reports no additional respiratory complaints Gastrointestinal: Gastrointestinal: Reports no additional gastrointestinal complaints Genitourinary: Genitourinary: Reports no additional male genitourinary complaints Musculoskeletal: Musculoskeletal: Reports no additional musculoskeletal complaints Integumentary/Breasts: Skin/Breast: Reports rash Neurologic: Reports as per HPI Psychiatric: Psychiatric: Reports no additional psychiatric complaints [facility] Past Medical History Medical History Erectile dysfunction Essential hypertension Hyperlipidemia Surgical History Surgical History History of carpal tunnel release History of cataract extraction with lens replacement Family History Family History Mother Cerebrovascular accident Father Family history of coronary artery disease Social History Social History Social History: Surrogate medical decision maker: Essence Gaspar, daughter. Code status: Full code. Years smoked: 3 Smoking status: Former smoker Tobacco type: cigars Second hand tobacco smoke exposure: No Smoking end date: 09/04/85 Alcohol intake: current Drinks per week: 21 Alcohol use details: Two shots of whiskey a day. Substance use: n
--- NOTE | 2022-12-17 10:45 | P.DS_ITS ---
DS: Admitting Diagnosis Discharge Date 12/17/2022 1045 Admitting Diagnosis acute stroke DS: Discharge Diagnosis Discharge Diagnosis (1) Cerebrovascular accident: Code(s): I63.9 - Cerebral infarction, unspecified Status: Acute Assessment and Plan: * Presented to the ED of [place] with complaints of weakness and heaviness in the right arm * Head CT no acute intracranial abnormality * CTA shows 0% stenosis bilaterally, atherosclerotic plaque at the bilateral carotid siphons, the basilar and bilateral intracranial vertebral arteries, white matter disease * Brain MRI shows an acute infarct and a possible smaller subacute infarct in the right periventricular matter. * Echocardiogram showed EF of 65-70% with grade 1 diastolic dysfunction without right to left shunt * carotid Doppler ultrasounds less than 50% stenosis bilaterally * Radiologist remarks on chronic white matter changes with evidence of probable prior scattered microhemorrhages which may be seen with amyloid angiopathy. * Lipid panel cholesterol 192, Triglycerides 133, HDL 46, LDL * Neurology consult * Neuro checks Q4H * PT/OT also consulted. (2) White matter changes: Status: Acute Assessment and Plan: * MRI demonstrates moderate chronic white matter changes with evidence of probable prior scattered microhemorrhages, consider amyloid angiopathy. * Urine and serum protein electrophoresis and immunofixation and light chain assay pending. * Cutaneous findings on the lower limbs and a skin biopsy would be appropriate. * May have to be done by dermatology as an outpatient. (3) Essential hypertension: Code(s): I10 - Essential (primary) hypertension Status: Acute Assessment and Plan: * Blood pressure currently 130/84 * Continue home amlodipine, lisinopril * Trend BP * Adjust therapy as indicated (4) Hyperlipidemia: Qualifiers: Hyperlipidemia type: mixed hyperlipidemia Qualified Code(s): E78.2 - Mixed hyperlipidemia Code(s): E78.5 - Hyperlipidemia, unspecified Status: Acute Assessment and Plan: * Lipid panel cholesterol 192, Triglycerides 133, HDL 46, LDL * Consider adding a statin (5) Impaired fasting glucose: Code(s): R73.01 - Impaired fasting glucose Status: Acute Assessment and Plan: * Glucose 96 * hemoglobin A1c 5.7 * Continue to trend glucose * No indication of accu checks, or continuous monitoring DS: Summary Hospital Course Hospital Course: Patient is a 77-year-old male with a past medical history of hypertension who presented to the ED with complaints abnormal MRI. On 12/15 patient presented to ED at [place] and was evaluated for weakness and having his left arm and leg. At that time CT of the head was performed did not show any acute bleeds or findings. Patient then presented to the imaging center for an MRI of the brain which did show an acute infarct in the right periventricular matter and suspected additional 9 mm acute infarct in the same region. It also showed some chronic white matter changes. Neurology was consulted and full workup was performed. Patient did have elevated lipid panel and has been started on atorvastatin. Plavix has been continued since it was prescribed in the ED at [place]. Patient is also been started on aspirin and blood pressure has been well controlled. Anticoagulation disorder workup has been initiated and is underway. Currently georgina
--- NOTE | 2022-12-17 10:45 | PM.DS ---
DS: Admitting Diagnosis Discharge Date 12/17/2022 1045 Admitting Diagnosis acute stroke DS: Discharge Diagnosis Discharge Diagnosis (1) Cerebrovascular accident: Code(s): I63.9 - Cerebral infarction, unspecified Status: Acute Assessment and Plan: Presented to the ED of [place] with complaints of weakness and heaviness in the right arm Head CT no acute intracranial abnormality CTA shows 0% stenosis bilaterally, atherosclerotic plaque at the bilateral carotid siphons, the basilar and bilateral intracranial vertebral arteries, white matter disease Brain MRI shows an acute infarct and a possible smaller subacute infarct in the right periventricular matter. Echocardiogram showed EF of 65-70% with grade 1 diastolic dysfunction without right to left shunt carotid Doppler ultrasounds less than 50% stenosis bilaterally Radiologist remarks on chronic white matter changes with evidence of probable prior scattered microhemorrhages which may be seen with amyloid angiopathy. Lipid panel cholesterol 192, Triglycerides 133, HDL 46, LDL Neurology consult Neuro checks Q4H PT/OT also consulted. (2) White matter changes: Status: Acute Assessment and Plan: MRI demonstrates moderate chronic white matter changes with evidence of probable prior scattered microhemorrhages, consider amyloid angiopathy. Urine and serum protein electrophoresis and immunofixation and light chain assay pending. Cutaneous findings on the lower limbs and a skin biopsy would be appropriate. May have to be done by dermatology as an outpatient. (3) Essential hypertension: Code(s): I10 - Essential (primary) hypertension Status: Acute Assessment and Plan: Blood pressure currently 130/84 Continue home amlodipine, lisinopril Trend BP Adjust therapy as indicated (4) Hyperlipidemia: Qualifiers: Hyperlipidemia type: mixed hyperlipidemia Qualified Code(s): E78.2 - Mixed hyperlipidemia Code(s): E78.5 - Hyperlipidemia, unspecified Status: Acute Assessment and Plan: Lipid panel cholesterol 192, Triglycerides 133, HDL 46, LDL Consider adding a statin (5) Impaired fasting glucose: Code(s): R73.01 - Impaired fasting glucose Status: Acute Assessment and Plan: Glucose 96 hemoglobin A1c 5.7 Continue to trend glucose No indication of accu checks, or continuous monitoring DS: Summary Hospital Course Hospital Course: Patient is a 77-year-old male with a past medical history of hypertension who presented to the ED with complaints abnormal MRI. On 12/15 patient presented to ED at [place] and was evaluated for weakness and having his left arm and leg. At that time CT of the head was performed did not show any acute bleeds or findings. Patient then presented to the imaging center for an MRI of the brain which did show an acute infarct in the right periventricular matter and suspected additional 9 mm acute infarct in the same region. It also showed some chronic white matter changes. Neurology was consulted and full workup was performed. Patient did have elevated lipid panel and has been started on atorvastatin. Plavix has been continued since it was prescribed in the ED at [place]. Patient is also been started on aspirin and blood pressure has been well controlled. Anticoagulation disorder workup has been initiated and is underway. Currently patient feels good and he denies any chest pain, shortness a breath, nausea, vomiting, diarrhea, constipation, weakness or fatigue. Patient does still have some moderate weakness in the left hand as he is unable to pick anything up with it. Carotid Dopplers were performed and showed less than 50% stenosis bilaterally. CTA has been ordered shows infarct as mentioned in the MRI, 0% stenosis bilateral carotid arteries, nonhemodynamically significant atherosclerotic plaque at the
[2022-12-17] MEDS: ATORVASTATIN 20 MG TABLET PO (11:51)
[2022-12-17] MEDS: ASPIRIN 81 MG CHEWABLE TABLET PO (11:51)
--- NOTE | 2022-12-17 12:15 | PCSTNOTE ---
Bedside communication evaluation. Auditory comprehension and verbal expression are found to be within normal limits. Results of oral peripheral examination within normal limits. Speech intelligibility in conversational speech within functional limits. No further speech therapy is recommended. Thank you for the referral of this patient.
[2022-12-20 20:15] LABS: Kappa\\Lambda Light Chains 1.31 (0.26-1.65); Lambda Light Chain 15.5 mg/L (5.7-26.3)
[2022-12-21 15:56] LABS: Albumin 3.7 g/dL (3.8-4.8); Alpha 1 Globulin 0.3 g/dL (0.2-0.3); Alpha 2 Globulin 0.7 g/dL (0.5-0.9); Beta 1 Globulin 0.5 g/dL (0.4-0.6); Gamma Globulin 0.7 g/dL (0.8-1.7); Interpretation Consistent with; Protein, Total 6.3 g/dL (6.1-8.1)
[2022-12-23 01:46] LABS: Albumin 24 Hr Urine 33 %; Creatinine, 24 Hr Urine 2.05 g/24 h (0.50-2.15); Total Protein/Creatinine Ratio 73 mg/g creat (<100)
[2022-12-26 20:03] LABS: Creat 24 Hr 1.88 g/24 h (0.50-2.15); Measured Kappa Chains <1.00 mg/dL (<2.00); Measured Lambda Chains <1.00 mg/dL (<2.00)
== END 2022-12-17 17:30 | disposition home or self-care (01) | DRG 65 ==
LOC: ANHED 10:59 → ANH2MED 13:14
PROVIDERS: Physician Assistant; Admitting Provider Hospitalist; Emergency Provider Emergency Medicine; PCP Emergency Medicine; Visit Provider Nurse Practitioner
DX: I63.9 Cerebral infarction, unspecified (principal); G81.94 Hemiplegia, unspecified affecting left nondominant side; E78.5 Hyperlipidemia, unspecified; I10 Essential (primary) hypertension; L40.9 Psoriasis, unspecified; R73.01 Impaired fasting glucose; Z98.49 Cataract extraction status, unspecified eye; Z96.1 Presence of intraocular lens; Z87.891 Personal history of nicotine dependence; Z79.02 Long term (current) use of antithrombotics/antiplatelets
CPT/HCPCS: 36415; 70496; 70498; 71045; 80048; 80053; 80061; 81050; 82570; 83036; 83735; 83883; 84155; 84156; 84165; 84166; 84484; 85025; 85610; 85730; 86334; 86335; 93005; 93306; 93880; 96375; 97161; 97165; 99285; A9270; Q9967